=== PATIENT | female | born 1975 | race Two or more races ===

== ENCOUNTER 2019-03-05 01:43 | Emergency (ER) | payer SELFPAY ==
[~2019-03-05] VITALS: Ht 170.2 cm; Wt 56.2 kg
--- NOTE | 2019-03-05 02:04 | NUR ---
PT [facility] AND [employer] FOR LYING IN THE MIDDLE OF THE [place] AND "BIZARRE BEHAVIOR" PT DENIES SI/HI. PT RESPIRATIONS EVEN AND UNLABORED. PT PUT ON THE INPATIENT CARE MANAGER RN AND PULSE OX. PENDING EVAL FROM ROLLY RODRIGUEZ.
--- NOTE | 2019-03-05 02:10 | NUR ---
PT AMBULATED WITH STEADY GAIT TO BATHROOM. URINE SAMPLE OBTAIN AND SENT TO LAB.
--- NOTE | 2019-03-05 02:30 | NUR ---
ROLLY RODRIGUEZ AT BEDSIDE.
--- NOTE | 2019-03-05 02:55 | NUR ---
PREPRESS MANAGER AT BEDSIDE.
[2019-03-05 02:58] LABS: APPEARANCE,URINE SL CLOUDY (CLEAR); BILIRUBIN,URINE NEGATIVE (NEGATIVE); BLOOD, URINE 3+ Ery/uL (NEGATIVE); COLOR,URINE DARK YELLO (YELLOW); KETONES,URINE NEGATIVE (NEGATIVE); LEUKOCYTE ESTERASE ,URINE NEGATIVE (NEGATIVE); NITRITE, URINE NEGATIVE (NEGATIVE); PROTEIN,URINE 3+ mg/dl (NEGATIVE); UGLUCOSE NEGATIVE (NEGATIVE); UROBILINOGEN,URINE 0.2 EU/dL (0.2)
--- NOTE | 2019-03-05 03:00 | NUR ---
PT RESTING BED COMFORTABLY, NAD NOTED. EASILY AROUSABLE. WILL CONTINUE TO MONITOR.
[2019-03-05 03:06] LABS: BACTERIA,URINE Moderate /HPF (None Seen); SQUAMOUS EPITHELIAL CELL,UR Moderate /HPF (None Seen)
[2019-03-05 03:18] LABS: BASOPHILS # (AUTO) 0.1 /CMM (0.0-0.2); BASOPHILS % (AUTO) 0.7 % (0.0-2.0); HEMATOCRIT 40 % (33-45); HEMOGLOBIN 13.5 g/dL (11.5-14.8); LYMPHOCYTES # (AUTO) 1.8 /CMM (0.8-4.8); LYMPHOCYTES % (AUTO) 23.2 % (20.0-44.0); MEAN CORPUSCULAR HGB CONC 34 g/dl (31.0-36.0); MEAN CORPUSCULAR VOLUME 95 fL (82-100); MONOCYTES # (AUTO) 0.7 /CMM (0.1-1.30); MONOCYTES % (AUTO) 9.3 % (2.0-12.0); NEUTROPHILS # (AUTO) 5.1 /CMM (1.8-8.9); NEUTROPHILS % (AUTO) 65.8 % (43.0-81.0); PLATELET COUNT (AUTO) 182 /CMM (150-450); RED BLOOD CELL COUNT(AUTO) 4.18 MIL/uL (4.0-5.2); WHITE BLOOD COUNT (AUTO) 7.8 K/uL (4.3-11.0)
[2019-03-05 03:28] LABS: CALCIUM, SERUM 8.9 mg/dL (8.5-10.1); CARBON DIOXIDE 23 mmol/L (21-32); CHLORIDE 107 mmol/L (98-107); CREATININE 0.7 mg/dL (0.6-1.3); GLUCOSE 107 mg/dL (74-106); POTASSIUM 3.8 mmol/L (3.5-5.1); SODIUM SERUM 142 mmol/L (136-145); UREA NITROGEN, BLOOD 10 mg/dL (7-18)
[2019-03-05 03:34] LABS: ALANINE AMINOTRANSFERASE 21 U/L (12-78); ALBUMIN 3.9 g/dL (3.4-5.0); ALCOHOL, BLOOD < 3 mg/dL (0-0); ALKALINE PHOSPHATASE 77 U/L (46-116); ASPARTATE AMINOTRANSFERASE 13 U/L (15-37); BILIRUBIN,DIRECT 0.1 mg/dL (0.0-0.2); BILIRUBIN,TOTAL 0.4 mg/dL (0.2-1.0); TOTAL PROTEIN, SERUM 7.2 g/dL (6.4-8.2)
[2019-03-05 03:36] LABS: ACETAMINOPHEN 0 ug/ml (10-30); SALICYLATE 0.7 mg/dL (2.8-20.0)
--- NOTE | 2019-03-05 04:10 | NUR ---
PSYCH CLINICIAN AT BEDSIDE FOR EVAL.
--- NOTE | 2019-03-05 05:30 | NUR ---
Patient is resting comfortably in bed with eyes closed. Easily aroused. VSS
--- NOTE | 2019-03-05 07:39 | NUR ---
REPORT RECEIVED FROM [employer] [employer] [facility]
--- NOTE | 2019-03-05 08:40 | NUR ---
SERVED BREAKFAST TRAY, PT TOLERATING PO WELL.
--- NOTE | 2019-03-05 09:40 | NUR ---
Social service consult requested by FRAN Hanson for drug use and homelessness. Pt. is a 43 year old female who was brought to the ER by [employer] and EMS. Pt. was evaluated by belly packer Miguel Nelson and is not a danger to self or others. SW met with pt. bedside. Pt. is alert and oriented x 4. Pt. appears disheveled. Pt. states she has been homeless for 5 months. Pt. is originally from [facility]. Pt. denied drug use, although per belly packer's note, pt. had use crystal amphetamine yesterday. SW offered pt. jail placement. Pt. wanted jail in the [place], SW informed pt. there are no emergency shelters in the [place] since the [facility]. [facility] offered pt. shelters in [facility], however pt. declined. Pt. accepted the following resources; list of homeless shelters, Homeless resource directory, health clinics, food jones, etc. Copy of resources were also placed in pt's chart. Pt. was given breakfast and TAP Card. Homeless Patient Waiver Form was signed by the pt. and placed in pt's chart.
[2019-03-05 11:20] VITALS: BP 120/70
--- NOTE | 2019-03-05 11:34 | NUR ---
Patient given written and verbal discharge instructions. Patient verbalizes understanding of instructions. Patient is ambulatory with steady gait. Refuses offer of [place] [facility] placement. Patient given list of available shelters in surrounding area. Provided with Tap card. Pt wearing jacket, pants and boots upon leaving hospital premises. ID band removed before leaving hospital.
== END 2019-03-05 11:39 | disposition home or self-care (01) ==
LOC: ER 01:52
DX: F28 Other psychotic disorder not due to a substance or known physiological condition (principal); F15.10 Other stimulant abuse, uncomplicated; F32.9 Major depressive disorder, single episode, unspecified
CPT/HCPCS: 36415; 80048; 80076; 80305; 80307; 80329; 81001; 84702; 85025; 87086; 99284; G0480; 81000-TC